=== PATIENT | male | born 1955 | race Caucasian/White ===

== ENCOUNTER 2024-03-22 11:59 | Outpatient (CLI) | payer MEDICARE, SELFPAY ==
--- NOTE | ~2024-03-22 | XR_ITS ---
EXAMINATION: XR sinus min 3V DATE: 03/22/2024 12:34 INDICATION: Postnasal drip. TECHNIQUE: 4 views of the paranasal sinuses were obtained. COMPARISON: None. FINDINGS: There is leftward deviation of the nasal septum. No fracture. There is asymmetric mucosal t hickening in left maxillary sinus. IMPRESSION: 1. Asymmetric mucosal thickening in left maxillary sinus. 2. Leftward deviation of the nasal septum. Reviewed, dictated and finalized at location A.
[2024-03-22 12:21] LABS: Basophils Absolute Auto 0.1 K/mm3 (0.0-0.1); Basophils Percent Auto 0.7 % (0.2-1.2); Eosinophils Absolute Auto 0.1 K/mm3 (0-0.3); Eosinophils Percent Auto 0.9 % (0-4.4); Hematocrit 49.5 % (42.0-52.0); Hemoglobin 16.4 g/dL (14.0-18.0); Immature Granulocyte Absolute 0.03 K/mm3 (0.00-0.031); Immature Granulocyte Percent A 0.3 % (0-0.5); Lymphocytes Absolute Auto 2.82 K/mm3 (0.9-3.2); Mean Corpuscular HGB Conc 33.1 g/dl (32-36); Mean Corpuscular Hemoglobin 32.2 pg (26-34); Mean Corpuscular Volume 97.1 fl (80-100); Mean Platelet Volume 9.1 fl (7.4-10.4); Monocytes Absolute Auto 0.6 K/mm3 (0.1-0.6); Monocytes Percent Auto 6.4 % (2.6-8.5); Neutrophils Absolute Auto 5.8 K/mm3 (1.3-6.7); Neutrophils Percent Auto 61.7 % (45.5-73.1); Platelet Count Result 221 k/mm3 (150-375); Red Cell Distribution Width 13.3 % (11.5-14.5); White Blood Count 9.4 K/mm3 (4.5-10.0)
[2024-03-22 12:29] LABS: Hemoglobin A1C 5.8 % (<5.7)
[2024-03-22 12:31] LABS: Alanine Aminotransferase 18 U/L (6-50); Albumin Level 4.5 g/dL (3.5-5.1); Alkaline Phosphatase 60 U/L (38-126); Anion Gap 10 mmol/L (4-12); Aspartate Amino Transferase 24 U/L (17-59); Bilirubin,Total 1.3 mg/dL (0.2-1.3); Blood Urea Nitrogen 17 mg/dL (9-20); Carbon Dioxide 26 mmol/L (22-30); Chloride 102 mmol/L (98-107); Estimated Glomerular Filt Rate > 60; Glucose 137 mg/dL (65-110); Potassium 4.1 mmol/L (3.4-5.0); Sodium 138 mmol/L (137-145)
[2024-03-22 12:57] LABS: Free T4 Free Thyroxine 1.21 ng/mL (0.78-2.19); Vitamin D 25 Hydroxy 40.7 ng/mL
[2024-03-22 13:02] LABS: Prostate Specific Antigen 1.3 ng/mL (< OR = 4.0); Thyroid Stimulating Hormone 0.417 uIU/mL (0.465-4.680)
== END 2024-03-22 12:00 | disposition home or self-care (01) ==
LOC: ANHLAB 12:07
PROVIDERS: PCP Internal Medicine; Visit Provider Internal Medicine
DX: E55.9 Vitamin D deficiency, unspecified (principal); I10 Essential (primary) hypertension; Z12.5 Encounter for screening for malignant neoplasm of prostate; Z13.29 Encounter for screening for other suspected endocrine disorder; Z13.1 Encounter for screening for diabetes mellitus; R09.82 Postnasal drip; J32.9 Chronic sinusitis, unspecified; J34.2 Deviated nasal septum; Z79.899 Other long term (current) drug therapy
CPT/HCPCS: 36415; 70220; 80053; 82306; 83036; 84153; 84439; 84443; 85025; G0103

== ENCOUNTER 2024-03-29 15:55 | Outpatient (CLI) | payer MEDICARE, SELFPAY ==
--- NOTE | ~2024-03-29 | US_ITS ---
EXAMINATION: US carotid duplex BI DATE: 03/29/2024 17:00 INDICATION: Carotid atherosclerosis. TECHNIQUE: Grayscale, color Doppler, and pulsed Doppler images of the cervical carotid arteries were obtained. The degree of vessel stenosis is placed in one of the following categories: normal, <50%, 5 0-69%, >=70% but less than near-occlusion, near-occlusion, or total occlusion. Note that percent sten osis relative to normal distal artery lumen diameter is indirectly measured from velocity measurement s as described by Dexter, et al. Radiology 2003; 229:340-346. COMPARISON: None. FINDINGS: RIGHT: The right common carotid artery (CCA) peak systolic velocity (PSV) is 86 cm/s. The right internal car otid artery (ICA) PSV is 74 cm/s. The right ICA end-diastolic velocity (EDV) is 16 cm/s. The right IC A/CCA PSV ratio is 0.9. Grayscale and color Doppler images yield an estimate of <50% diameter reducti on from plaque in the ICA. The external carotid artery (ECA) PSV is 322 cm/s. There is antegrade flow in the right vertebral artery. LEFT: The left CCA PSV is 111 cm/s. The left ICA PSV is 130 cm/s. The left ICA EDV is 30 cm/s. The left ICA /CCA PSV ratio is 1.2. Grayscale and color Doppler images yield an estimate of <50% diameter reductio n from plaque in the ICA. The ECA PSV is 208 cm/s. There is antegrade flow in the left vertebral alessia ry. IMPRESSION: 1. <50% stenosis in the right internal carotid artery. 2. <50% stenosis in the left internal carotid artery. Reviewed, dictated and finalized at location A.
--- NOTE | ~2024-03-29 | CT_ITS ---
EXAMINATION:CT lung screening DATE: 03/29/2024 16:16 INDICATION: Personal history of nicotine dependence. Current smoker with 50 pack year history. TECHNIQUE: Computed tomography (CT) of the chest was performed without intravenous contrast. Automate d exposure control and iterative reconstruction technique were employed. The dose-length product (DLP ) was 92.93 mGy-cm. COMPARISON: None. FINDINGS: There is mild atelectasis in paraspinal right lower lobe. No pleural effusion. The heart si ze is normal. No pericardial effusion. There are coronary artery calcifications. There are changes of coronary artery bypass grafting. There are bridging endplate osteophytes at multiple levels in the s pine, consistent with diffuse idiopathic skeletal hyperostosis (DISH). IMPRESSION: 1. Lung-RADS category 1: Negative. Continue annual screening with noncontrast low-dose chest CT in 12 months. Reviewed, dictated and finalized at location A. IMPRESSION: 1. Lung-RADS category 1: Negative. Continue annual screening with noncontrast l ow-dose chest CT in 12 months.
== END 2024-03-29 15:56 | disposition home or self-care (01) ==
LOC: ANHIMG 15:56
PROVIDERS: PCP Internal Medicine; Visit Provider Internal Medicine
DX: Z12.2 Encounter for screening for malignant neoplasm of respiratory organs (principal); R09.89 Other specified symptoms and signs involving the circulatory and respiratory systems; F17.210 Nicotine dependence, cigarettes, uncomplicated; I65.23 Occlusion and stenosis of bilateral carotid arteries
CPT/HCPCS: 71271; 93880

== ENCOUNTER 2024-04-24 10:05 | Outpatient (CLI) | payer MEDICARE, SELFPAY ==
--- NOTE | ~2024-04-24 | US_ITS ---
EXAMINATION: US aorta DATE: 04/24/2024 10:43 INDICATION: Essential (primary) hypertension TECHNIQUE: Grayscale, color Doppler, and pulsed Doppler images of the aorta and common iliac arteries were obtained. COMPARISON: None. FINDINGS: The proximal aorta measures 2.5 cm in AP diameter. The mid aorta measures 2.6 cm. The distal aorta me asures 2.1 cm. The right common iliac artery measures 0.8. The left common iliac artery measures 0.7. IMPRESSION: 1. Normal caliber abdominal aorta Reviewed, dictated and finalized at location A.
== END 2024-04-24 10:06 | disposition home or self-care (01) ==
PROVIDERS: PCP Internal Medicine; Visit Provider Internal Medicine
DX: I10 Essential (primary) hypertension (principal); I25.10 Atherosclerotic heart disease of native coronary artery without angina pectoris; I25.810 Atherosclerosis of coronary artery bypass graft(s) without angina pectoris; Z87.81 Personal history of (healed) traumatic fracture
CPT/HCPCS: 76775

== ENCOUNTER 2025-02-24 09:42 | Outpatient (CLI) | payer MEDICARE, SELFPAY ==
--- OUTSIDE RECORDS SUMMARY | 2025-02-24 09:58 | XMS_ITS | Clinical Summary ---
Author Organization [facility] Address [facility] [place] [address] Care Team Providers Care Servicenow Administrator Name Role Phone Unavailable Primary Care Provider Unavailabl e Social History Tobacco Use Types Packs/Day Years Used Date Smoking Tobacco: Never Assessed Sex and Gender Information Value Date Recorded Sex Assigned at Not on file Legal Sex Male 7:37 PM CDT Gender Identity Not on file Sexual Orientation Not on file Plan of Treatment Health Maintenance Due Date Last Done Comments Colorectal Cancer Screening Colonoscopy (10 Years) 1955 Hepatitis C 11/19/1971 DTaP, Tdap and Td Vaccines ( 1 - Tdap) 1972 Pneumococcal Vaccine: 50+ Ye ars (1 of 1 - PCV) 11/19/2003 Zoster Vaccines (1 of 2) 11/19/2003 COVID-19 Vaccine ( - 2023-2 5 season) 2024 RSV Immunization or 60+ Years (1 - 1-dose 75+ series) 2028 Meningococcal B Vaccine Aged Out No l onger eligible based on patient's age to complete this topic Meningococcal Vaccine Aged Out No javy yoly eligible based on patient's age to complete this topic RSV Immunizations Under 20 Months Aged Out No longer eligible based on patient's age to complete this topic
--- OUTSIDE RECORDS SUMMARY | 2025-02-24 09:58 | XMS_ITS | Encounter Summary ---
Author Organization [facility] Healthcare Address [address] [place] [address] Care Team Providers Care Boomswing Operator Name Role Phone Trell Jolley MD Primary Care Provider [phone] Robbie Forbes DO Primary Care Provider [phone] Denisha Murphy Primary Care Provider [phone] No, Physician Primary Care Provider [phone] Anjel Pina MD Primary Care Provider [phone] Encounter Details Date Type Department Care Team (Late st Contact Info) Description 11/27/2017 Orders Only [facility] [address] [place] [address] Scanning, Provider Social History Tobacco Use Types Packs/Day Years Used Date Smoking Tobacco: Every Day Cigarettes Smokeless Tobacco: Never Alcohol Use Standard Drinks/Week Comments Yes 2 (1 standard drink = 0.6 oz pur e alcohol) rarely Sex and Gender Information Value Date Recorded Sex Assigned at Not on file 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 Gender Identity Not on file Sexual Orientation Not on file documented as of this encounter Plan of Treatment Not on file documented as of this encounter Procedures Procedure Name Priority Date/Time Associated Diagnosis Comments SCAN - LABS 11/27/2017 CARDIOLOGY DOCUMENT SCAN 11/27/2017 documented in this encounter Results * SCAN - LABS (11/27/2017) us Provider Scanning Edited Result - Final * Cardiology Document Scan (11/27/2017) Anatomical Region Laterality Modality Other us Provider Scanning CV CARDIAC SERVICES PROCEDURES Final Result documented in this encounter Visit Diagnoses Not on filedocumented in this encounter Care Teams Boomswing Operator Relationship Specialty Start Date End Date Trell Jolley MD PCP - General Internal Medicine 02/08/17 04/16/18 Robbie Forbes DO PCP - General Internal Medicine 04/17/18 11/08/20 Denisha Murphy PA PCP - General Threshing Department Supervisor 11/09/20 03/14/23 No, Physician PCP - General 09/14/23 11/28/24 Anjel Pina MD [address] [facility] [address] [facility] [address] [place] [address] PCP - General Internal Medicine 11/29/24 documented as of this encounter
--- OUTSIDE RECORDS SUMMARY | 2025-02-24 09:58 | XMS_ITS | Referral Summary ---
Author Organization [facility] [place] [address] [place] [address] [address] [address] Care Team Providers Care Manager Property Name Role Phone Anjel Pina MD Primary Care Provider [phone] Encounters Date Type Department Care Team Description 02/18/2025 Telephone [facility] Medical [facility] Cardiology [address] [place] [address] [address] [place] [address] Jaden Ackerman MD 12/12/2024 Telephone [facility] Cardiology [address] [place] [address] [place] [address] Jaden Ackerman MD 11/29/2024 10:15 AM CDT Office Visit [facility] Medical Group Cardiology at [address] [place] [address] Jaden Ackerman MD S/P coronary artery stent placement (Primary Dx); Hx of CABG; Paroxysmal atrial fibrillation (HCC) from Last 3 Months Allergies No known active allergies Medications aspirin (ASPIR-81) 81 mg tablet take 1 tablet (81MG) by oral route every day 0 3 Active Additional Information Patient not taking.Reported on 11/29/2024 aspirin 162.5 mg capsule,extende d release 24hr Take by mouth A ctive rosuvastatin (CRESTOR) 10 mg tabletIndicatio ns:Coronary artery disease involving [place] coronary artery of [place] heart without angina pectoris TAKE 1 TABLET(10 MG) BY MOUTH DAILY 90 tablet 2 4 Active clopidogreL (PLAVIX) 75 mg tablet TAKE 1 TABLET(75 MG) BY MOUTH DAILY 90 tablet 2 5 Active lisinopriL (PRINIVIL,ZESTR IL) 10 mg tablet TAKE 1 TABLET(10 MG) BY MOUTH DAILY 90 tablet 2 5 Active nitroglycerin (NITROSTAT) 0.[address] 1 tablet (0.4 mg total) under the tongue every 5 (five) minutes as needed for chest pain 25 tablet 1 5 Active metoprolol tartrate (LOPRESSOR) 25 mg immediate release tablet TAKE 1 TABLET(25 MG) BY MOUTH TWICE DAILY 180 tablet 2 5 Active Active Problems Problem Noted Date Diagnosed Date BMI 28.0-28.9,adult 11/09/2020 Assessment & Plan (11/09/2020 4:37 PM CDT): Weight/BMI is in healthy range. Continue healthy lifestyle to maintain. Tobacco use disorder 11/09/2020 Assessment & Plan (11/09/2020 8:56 PM CDT): Advised smoking cessation. He declines to quit or aid to quit. Leg cramping 11/09/2020 Assessment & Plan (11/09/2020 8:57 PM CDT): Advised further evaluation with labs and imaging, will notify of results as available. Hx of CABG 01/11/2018 H/O maze procedure 01/11/2018 Aftercare following surgery of the circulatory s ystem 01/09/2018 CAD (coronary artery disease) 02/08/2017 S/P coronary artery stent placement 02/08/2017 Paroxysmal atrial fibrillation 02/08/2017 Immunizations Immunization Administration Dates Next Due [employer] (J&J) SARS-CoV-2 Vaccination 10/01/2020 Social History Tobacco Use Types Packs/Day Years Used Date Smoking Tobacco: Every Day Cigarettes Smokeless Tobacco: Never Tobacco Cessation:Ready to Q uit: Not Asked; Counseling Given: Not Answered Alcohol Use Standard Drinks/Week Comments Yes 2 (1 standard drink = 0.6 oz pur e alcohol) rarely AUDIT-C Answer Date Recorded Q1: How often do you have a drink containing alc ohol? Monthly or less 11/09/2020 Q2: How many drinks containi ng alcohol do you have on a typical day when you are drinking? 1 or 2 11/09/2020 Q3: How often do you have si x or more drinks on one occasion? 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 Gender Identity Not on file Sexual Orientation Not on file Last Filed Vital Signs Vital Sign Reading Time Taken Comments Blood Pressure 162/94 11/29/2024 10:28 AM CDT Pulse 70 11/29/2024 10:28 AM CDT Temperature 36.6 C (97.8 F) 11/09/2020 4:34 PM CDT Respiratory Rate 18 01/09/2018 9:37 AM CDT Oxygen Saturation 98% 11/29/2024 10:28 AM CDT Inhaled Oxygen Concentration - - Weight 80.7 kg (178 lb) 11/29/2024 10:28 AM CDT Height 177.8 cm (5' 10) 11/29/2024 10:28 AM CDT Body Mass Index 25.54 11/29/2024 10:28 AM CDT Plan of Treatment Not on file Insurance MEDICARE [employer] MEDICARE [employer] Advance Directives For more information, please contact: [phone] * Full Code (Latest Code Status on File) Date Activated Date Inactivated Comments 12/06/2017 1:32 PM 12/12/2017 4:12 PM Care Teams Manager Property Relationship Specialty Start Date End Date Anjel Pina MD [address] [facility] [address] [place], [place] [id number] PCP - General Internal Medicine 11/29/24
--- OUTSIDE RECORDS SUMMARY | 2025-02-24 09:58 | XMS_ITS | Clinical Summary ---
Author Organization [facility] [address] Address [address] [place] [address] Care Team Providers Care Train Planner Name Role Phone Anjel Pina MD Primary Care Provider [phone] Allergies No known active allergies Medications aspirin (ASPIR-81) 81 mg tablet take 1 tablet (81MG) by oral route every day 0 3 Active Additional Information Patient not taking.Reported on 11/29/2024 aspirin 162.5 mg capsule,extende d release 24hr Take by mouth A ctive rosuvastatin (CRESTOR) 10 mg tabletIndicatio ns:Coronary artery disease involving [place] coronary artery of [place] heart without angina pectoris TAKE 1 TABLET(10 [...] stent placement 02/08/2017 Paroxysmal atrial fibrillation 02/08/2017 Encounters Date Type Department Care Team Description 02/18/2025 Telephone [facility] Medical [facility] Cardiology [address] [place] [address] Jaden Ackerman MD 12/12/2024 Telephone [facility] Cardiology [address] [place] [address] Jaden Ackerman MD 11/29/2024 10:15 AM CDT Office Visit [facility] Medical Group Cardiology at [address] [place] [address] Jaden Ackerman MD S/P coronary artery stent placement (Primary Dx); Hx of CABG; Paroxysmal atrial fibrillation (HCC) from Last 3 Months Immunizations Immunization Administration Dates Next Due [employer] (J&J) SARS-CoV-2 Vaccination 10/01/2020 Surgical History Surgery Date Site/Laterality Comments ARTERIAL BYPASS SURGERY 12/07/2017 Medical History Medical History Date Comments Osteoarthritis Coronary artery disease Left ant erior descending and diagonal stenting 2002 [facility] Hyperlipidemia Atrial fibrillation (HCC) Paroxy smal, duration 5 to 10 years, hospitalized previously twice, once for cardioversion and once for pharmacologic conversion Continuous tobacco abuse Two pac ks a day, for 35 years CAD S/P percutaneous coronary angioplasty Hx of maze procedure Family History Medical History Relation Name Comments Heart attack Father Heart disease Father Ovarian cancer Mother Relation Name Status Comments Father Mother Social History Tobacco Use Types Packs/Day Years [...] on file 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 Gender Identity Not on file Sexual Orientation Not on file Obstetrics History Last Filed Vital Signs Vital Sign Reading [...] 11/29/2024 10:28 AM CDT Plan of Treatment Health Maintenance Due Date Last Done Comments Colon Cancer Screening-Colonoscopy 1955 Hepatitis C Screening 1955 DTaP/Tdap/Td Vaccine (1 - Tdap) 1964 Hepatitis B Screening 11/19/1971 Zoster Vaccine (1 of 2) 11/19/2003 Abdominal Aortic Aneurysm (AAA) Screen 2018 Well Visit 65+ 2018 Depression Screening 11/09/2021 11/09/2020 Fall Risk Assessment 11/09/2021 11/09/2020 Covid-19 Vaccine (2023- season) 03/24/202405/2021 Influenza Vaccine (#1) 2025 Pneumococcal vaccine 65+ Discontinued Insurance MEDICARE [employer] MEDICARE [employer] Advance Directives For more information, please contact: [phone] * Full Code (Latest Code Status on File) Date Activated Date Inactivated Comments 12/06/2017 1:32 PM 12/12/2017 4:12 PM Care Teams Train Planner Relationship Specialty Start Date End Date Anjel Pina MD [address] [place] [address] PCP - General Internal Medicine 11/29/24
[2025-02-24 10:06] LABS: Hematocrit 51.0 % (42.0-52.0); Hemoglobin 16.6 g/dL (14.0-18.0); Immature Granulocyte Percent A 0.6 % (0-0.5); Lymphocytes Absolute Auto 2.34 K/mm3 (0.9-3.2); Mean Corpuscular HGB Conc 32.5 g/dl (32-36); Mean Corpuscular Hemoglobin 32.0 pg (26-34); Mean Corpuscular Volume 98.3 fl (80-100); Nucleated Red Blood Cells Absolute Auto 0.000 K/mm3 (0.0-0.012); Nucleated Red Blood Cells Perc 0.0 % (0.0-0.2); Platelet Count Result 200 k/mm3 (150-375); Red Blood Count 5.19 M/mm3 (4.6-6.20); White Blood Count 7.9 K/mm3 (4.5-10.0)
[2025-02-24 10:37] LABS: Alanine Aminotransferase 20 U/L (6-50); Albumin Level 4.5 g/dL (3.5-5.1); Alkaline Phosphatase 66 U/L (38-126); Anion Gap 9 mmol/L (4-12); Aspartate Amino Transferase 24 U/L (17-59); Bilirubin,Total 1.1 mg/dL (0.2-1.3); Blood Urea Nitrogen 17 mg/dL (9-20); Calcium 9.3 mg/dL (8.4-10.2); Carbon Dioxide 26 mmol/L (22-30); Chloride 101 mmol/L (98-107); Cholesterol 169 mg/dL (0-200); Estimated Glomerular Filt Rate > 60; Glucose 175 mg/dL (65-110); HDL Direct 37 mg/dL; Potassium 4.0 mmol/L (3.4-5.0); Sodium 136 mmol/L (137-145); Total Protein 7.6 g/dL (6.3-8.2); Triglycerides 111 mg/dL (<150)
[2025-02-24 10:55] LABS: Free T4 Free Thyroxine 1.13 ng/dL (0.78-2.19)
[2025-02-24 11:03] LABS: Hemoglobin A1C 5.8 % (<5.7)
[2025-02-24 11:23] LABS: Thyroid Stimulating Hormone 0.443 uIU/mL (0.465-4.680)
== END 2025-02-24 09:43 | disposition home or self-care (01) ==
LOC: ANHLAB 09:45
PROVIDERS: PCP Internal Medicine; Visit Provider Internal Medicine
DX: E78.5 Hyperlipidemia, unspecified (principal); I10 Essential (primary) hypertension; R73.03 Prediabetes; Z13.29 Encounter for screening for other suspected endocrine disorder; Z79.899 Other long term (current) drug therapy
CPT/HCPCS: 36415; 80053; 80061; 82172; 83036; 84439; 84443; 85025

== ENCOUNTER 2025-06-24 08:55 | Outpatient (CLI) | payer MEDICARE, SELFPAY ==
--- OUTSIDE RECORDS SUMMARY | 2025-06-24 09:15 | XMS_ITS | Clinical Summary ---
Author Organization [facility] [address] Address [address] [place] [address] Care Team Providers Care President + Publisher Name Role Phone Anjel Pina MD Primary Care Provider [phone] Allergies No known active allergies Medications aspirin (ASPIR-81) 81 mg tablet take 1 tablet (81MG) by oral route every day 0 3 Active Additional Information Patient not taking.Reported on 11/29/2024 aspirin 162.5 mg capsule,extende d release 24hr Take by mouth A ctive rosuvastatin (CRESTOR) 10 mg tabletIndicatio ns:Coronary artery disease involving [place] coronary artery of [place] heart without angina pectoris TAKE 1 TABLET(10 [...] 02/08/2017 Immunizations Immunization Administration Dates Next Due [employer] (J&J) SARS-CoV-2 Vaccination 10/01/2020 Surgical History Surgery Date Site/Laterality Comments ARTERIAL BYPASS SURGERY 12/07/2017 Medical History Medical History Date Comments Osteoarthritis Coronary artery disease Left ant erior descending and diagonal stenting 2002 [facility] Hyperlipidemia Atrial fibrillation (HCC) Paroxy smal, [...] on file 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
--- OUTSIDE RECORDS SUMMARY | 2025-06-24 09:15 | XMS_ITS | Encounter Summary ---
Author Organization [facility] Healthcare Address [address] [place] [address] Care Team Providers Care Special Order Jeweler Name Role Phone Trell Jolley MD Primary Care Provider [phone] Robbie Forbes DO Primary Care Provider [phone] Denisha Murphy Primary Care Provider [phone] No, Physician Primary Care Provider [phone] Anjel Pina MD Primary Care Provider [phone] Encounter Details Date Type Department Care Team (Late st Contact Info) Description 11/27/2017 Orders Only [facility] [place] Information Management [address] [place] [address] Scanning, Provider Social History Tobacco Use Types Packs/Day Years Used Date Smoking Tobacco: Every Day Cigarettes Smokeless Tobacco: Never Alcohol Use Standard Drinks/Week Comments Yes 2 (1 standard drink = 0.6 oz pur e alcohol) rarely Sex and Gender Information Value Date Recorded Sex Assigned at Not on file 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
--- OUTSIDE RECORDS SUMMARY | 2025-06-24 09:15 | XMS_ITS | Clinical Summary ---
Author Organization [facility] Address [address] [place] [address] Care Team Providers Care Plastics Heat Welder Name Role Phone Unavailable Primary Care Provider [...] Vaccines (1 of 2) 11/19/2003 COVID-19 Vaccine (1 - 2024-2 6 season) 2025 Influenza Adult (#1) 2025 RSV Immunization or 60+ Years (1 - 1-dose 75+ series) 2028 Hepatitis A Vaccines Aged Out No long er eligible based on patient's age to complete this topic Meningococcal B Vaccine Aged Out No l onger eligible based on patient's age to complete this topic Meningococcal Vaccine Aged Out No javy yoly eligible based on patient's age to complete this topic RSV Immunizations Under 20 Months Aged Out No longer eligible based on patient's age to complete this topic
[2025-06-24 09:31] LABS: Alanine Aminotransferase 22 U/L (6-50); Albumin Level 4.7 g/dL (3.5-5.1); Alkaline Phosphatase 63 U/L (38-126); Anion Gap 3 mmol/L (4-12); Aspartate Amino Transferase 29 U/L (17-59); Bilirubin,Total 1.5 mg/dL (0.2-1.3); Blood Urea Nitrogen 19 mg/dL (9-20); Calcium 9.3 mg/dL (8.4-10.2); Carbon Dioxide 26 mmol/L (22-30); Chloride 107 mmol/L (98-107); Cholesterol 166 mg/dL (0-200); Estimated Glomerular Filt Rate > 60; Glucose 103 mg/dL (65-110); HDL Direct 48 mg/dL; Potassium 4.6 mmol/L (3.4-5.0); Sodium 136 mmol/L (137-145); Total Protein 7.8 g/dL (6.3-8.2); Triglycerides 91 mg/dL (<150)
[2025-06-24 09:34] LABS: Hemoglobin A1C 5.9 % (<5.7)
[2025-06-24 09:46] LABS: Free T4 Free Thyroxine 1.19 ng/dL (0.78-2.19)
[2025-06-24 10:09] LABS: Thyroid Stimulating Hormone 0.602 uIU/mL (0.465-4.680)
== END 2025-06-24 08:56 | disposition home or self-care (01) ==
PROVIDERS: PCP Internal Medicine; Visit Provider Internal Medicine
DX: E78.5 Hyperlipidemia, unspecified (principal); Z79.899 Other long term (current) drug therapy; Z13.29 Encounter for screening for other suspected endocrine disorder; E55.9 Vitamin D deficiency, unspecified; R73.03 Prediabetes; I10 Essential (primary) hypertension
CPT/HCPCS: 36415; 80053; 80061; 82306; 83036; 84439; 84443

== ENCOUNTER 2025-07-08 12:47 | Outpatient (CLI) | payer MEDICARE, SELFPAY ==
--- NOTE | ~2025-07-08 | CT_ITS ---
EXAMINATION: CT abdomen pelvis w con DATE: 07/08/2025 13:14 INDICATION: Left lower quadrant abdominal pain. TECHNIQUE: Computed tomography (CT) of the abdomen and pelvis was performed with 100 mL Omnipaque 350 intravenous contrast. Automated exposure control and iterative reconstruction technique were employed. The dose-length product was 431.00 mGy-cm. COMPARISON: Chest CT 03/29/2024 FINDINGS: The visualized portions of the lung bases demonstrate mild atelectasis. No pleural effusion. The heart size is normal. There are coronary artery calcifications. No pericardial effusion. The liver, gallbladder, spleen, pancreas, and right adrenal gland are normal. There is a 1.6 cm mass in left adrenal gland measuring soft tissue attenuation, stable from 03/29/2024, likely an adenoma. The kidneys are normal. The prostate is moderately enlarged. There are bilateral inguinal hernias containing fat. There is diverticulosis of the colon without evidence of diverticulitis. The appendix is normal. There are no dilated loops of bowel. There are no pathologically enlarged lymph nodes. There is a 3.4 cm fusiform infrarenal aortic aneurysm. There is mild lumbar spondylosis. There are bridging endplate osteophytes at multiple levels in the thoracic spine, consistent with diffuse idiopathic skeletal hyperostosis (DISH). IMPRESSION: 1. Bilateral inguinal hernias containing fat. 2. 3.4 cm fusiform infrarenal aortic aneurysm. Reviewed, dictated and finalized at location E. [employer]
--- OUTSIDE RECORDS SUMMARY | 2025-07-08 14:47 | XMS_ITS | Encounter Summary ---
Author Organization [facility] Healthcare Address [address] [place] [address] Care Team Providers Care Environmental Science Instructor Name Role Phone Trell Jolley MD Primary Care Provider [phone] Robbie Forbes DO Primary Care Provider [phone] Denisha Murphy Primary Care Provider [phone] No, Physician Primary Care Provider [phone] Anjel Pina MD Primary Care Provider [phone] Encounter Details Date Type Department Care Team (Late st Contact Info) Description 11/27/2017 Orders Only [facility] [place] [address] [place] [address] Scanning, Provider Social History Tobacco Use Types Packs/Day Years Used Date Smoking Tobacco: Every Day Cigarettes Smokeless Tobacco: Never Alcohol Use Standard Drinks/Week Comments Yes 2 (1 standard drink = 0.6 oz pur e alcohol) rarely Sex and Gender Information Value Date Recorded Sex Assigned at Not on file 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
--- OUTSIDE RECORDS SUMMARY | 2025-07-08 14:47 | XMS_ITS | Clinical Summary ---
Author Organization [facility] Address [address] [place] [address] Care Team Providers Care Real Estate Legal Secretary Name Role Phone Unavailable Primary Care Provider [...]
--- OUTSIDE RECORDS SUMMARY | 2025-07-08 14:47 | XMS_ITS | Clinical Summary ---
Author Organization [facility] [place] [address] Address [address] [place] [address] Care Team Providers Care Clothes Designer Name Role Phone Anjel Pina MD Primary Care Provider [phone] Allergies No known active allergies Medications aspirin (ASPIR-81) 81 mg tablet take 1 tablet (81MG) by oral route every day 0 08/10/19 13 Active Additional Information Patient not taking.Reported on 11/29/2024 aspirin 162.5 mg capsule,extend ed release 24hr Take by mouth Active rosuvastatin (CRESTOR) 10 mg tabletIndicati ons:Coronary artery disease involving [place] coronary artery of [place] heart without angina pectoris TAKE 1 TABLET(10 MG) BY MOUTH DAILY 90 tablet 2 07/08/20 24 Active lisinopriL (PRINIVIL,ZEST RIL) 10 mg tablet TAKE 1 TABLET(10 MG) BY MOUTH DAILY 90 tablet 2 10/08/19 25 Active nitroglycerin (NITROSTAT) 0.[address] 1 tablet (0.4 mg total) under the tongue every 5 (five) minutes as needed for chest pain 25 tablet 1 12/13/19 25 Active metoprolol tartrate (LOPRESSOR) 25 mg immediate release tablet TAKE 1 TABLET(25 MG) BY MOUTH TWICE DAILY 180 tablet 2 01/07/20 25 Active clopidogreL (PLAVIX) 75 mg tablet TAKE 1 TABLET(75 MG) BY MOUTH DAILY 90 tablet 1 07/07/20 25 Active clopidogreL (PLAVIX) 75 mg tablet TAKE 1 TABLET(75 MG) BY MOUTH DAILY 90 tablet 2 10/08/19 25 025 Discontinued Active Problems Problem Noted Date Diagnosed Date [...] 02/08/2017 Immunizations Immunization Administration Dates Next Due [email or web address] (J&J) SARS-CoV-2 Vaccination 10/01/2020 Surgical History Surgery Date Site/Laterality Comments ARTERIAL BYPASS SURGERY 12/07/2017 Medical History Medical History Date Comments Osteoarthritis Coronary artery disease Left ant erior descending and diagonal stenting [facility] Hyperlipidemia Atrial fibrillation (HCC) Paroxy smal, [...] on file Legal Sex Male 1:57 AM [employer] Gender Identity Not on file Sexual Orientation [...] 2025 Pneumococcal vaccine 65+ Discontinued Insurance [employer]IC[employer] Advance Directives For more information, please contact: [phone] * Full Code (Latest Code Status on File) Date Activated Date Inactivated Comments 12/06/2017 1:32 PM 12/12/2017 4:12 PM Care Teams Clothes Designer Relationship Specialty Start Date End Date Anjel Pina MD PCP - General Internal Medicine 11/29/24
== END 2025-07-08 12:48 | disposition home or self-care (01) ==
PROVIDERS: PCP Internal Medicine; Visit Provider Internal Medicine
DX: I71.43 Infrarenal abdominal aortic aneurysm, without rupture (principal); K40.20 Bilateral inguinal hernia, without obstruction or gangrene, not specified as recurrent
CPT/HCPCS: 74177; Q9967